=== PATIENT | male | born 1995 | race Caucasian/White ===

== ENCOUNTER 2016-10-03 17:27 | Emergency (ER) | payer BC ==
--- NOTE | 2016-10-03 19:18 | ERPHSYRPT ---
- History of Present Illness Time Seen by Provider: 10/03/16 19:08 Source: patient Exam Limitations: no limitations Patient Subjective Stated Complaint: "I started out going to my pcp for my anxiety. they refered me to the [facility]. i had been going there for about 6 months for my anxiety. today the [facility] told me to find a different provider. i went to the walk in, but they told me the best way to get a referal would be to come to the er.". denies s/i and h/i Triage Nursing Assessment: aox3, breathing easy unlabored,skin pink warm dry, steady gait, no s/s of distress noted. Physician History: FOR THE PAST 8 MONTHS PT HAS HAD ANXIETY. PT C/O INTERMITTENT SHARP ANTERIOR CHEST PAIN FOR THE PAST 7 HOURS LASTING UP TO 10 MINUTES PER EPISODE WITH SHORTNESS OF AIR. PT ALSO C/O OCCASIONAL HEADACHES. PT DENIES ABDOMINAL PAIN, VOMITING, FEVER. Allergies/Adverse Reactions: No Known Drug Allergies Allergy (Unverified 10/03/16 18:31) Home Medications: No Reportable Medications [No Reported Medications] 10/03/16 [History] Hx Tetanus, Diphtheria Vaccination/Date Given: Yes Hx Influenza Vaccination/Date Given: No Hx Pneumococcal Vaccination/Date Given: No Immunizations Up to Date: No - Review of Systems Constitutional: No Fever Respiratory: Dyspnea Cardiac: Chest Pain Abdominal/Gastrointestinal: No Abdominal Pain, No Vomiting Neurological: Headache Psychological: Anxiety All Other Systems: Reviewed and Negative - Past Medical History Neurological History: No Pertinent History ENT History: No Pertinent History Cardiac History: No Pertinent History Respiratory History: No Pertinent History Endocrine Medical History: No Pertinent History Musculoskeletal History: Other GI Medical History: No Pertinent History History: No Pertinent History Psycho-Social History: Anxiety Male Reproductive Disorders: No Pertinent History Other Medical History: herniated disc - Past Surgical History Past Surgical History: No - Social History Smoking Status: Never smoker Exposure to second hand smoke: No Drug Use: none Patient Lives Alone: No - Nursing Vital Signs Nursing Vital Signs: Initial Vital Signs Temperature 97.9 F Temperature Source Oral Pulse Rate 62 Respiratory Rate 14 Blood Pressure [] 112/80 Pain Intensity 6 - Physical Exam General Appearance: alert, anxiety Eye Exam: PERRL/EOMI Ears, Nose, Throat Exam: pharynx normal, moist mucous membranes Neck Exam: normal inspection Respiratory Exam: lungs clear Cardiovascular Exam: normal heart sounds Gastrointestinal/Abdomen Exam: soft, normal bowel sounds Back Exam: normal range of motion Extremity Exam: normal inspection, No pedal edema Neurologic Exam: alert, cooperative Skin Exam: warm, dry SpO2 Interpretation: normal SpO2: 98 Oxygen Delivery: Room Air - Course Nursing assessment & vital signs reviewed: Yes EKG Interpreted by Me: RATE (61), Sinus Rhythm, NORMAL AXIS, NORMAL INTERVALS - Radiology Exams Chest X-ray Interpretation: Interpreted by me, No Pneumonia Ordered Tests: Active Orders 24 hr Category Date Time Status EKG-ER Only STAT Care 10/03/16 19:17 Active CHEST 2 VIEWS (PA AND LAT) Stat Exams 10/03/16 19:17 Taken AMYLASE Stat Lab 10/03/16 19:50 Received CBC W DIFF Stat Lab 10/03/16 19:50 Completed CMP Stat Lab 10/03/16 19:50 Received LIPASE Stat Lab 10/03/16 19:50 Received MAG [MAGNESIUM] Stat Lab 10/03/16 19:50 Received TROPONIN Stat Lab 10/03/16 19:50 Received UA Stat Lab 10/03/16 21:21 Completed Urine Triage Profile Stat Lab 10/03/16 19:17 Ordered Medication Summary Discontinued Medications Generic Name Dose Route Start Last Admin Trade Name Freq PRN Reason Stop Dose Admin Diazepam 10 mg 10/03/16 23:29 Valium 5 Mg PO 10/03/16 23:30 STAT ONE Lab/Rad Data: Laboratory Result Diagrams 10/03/16 19:50 Laboratory Results 10/03/16 10/03/16 Range/Units 21:21 19:50 WBC 9.0 (4.0-10.5) K/mm3 RBC 5.35 (4.1-5.6) M/mm3 Hgb 16.0 (12.5-18.0) gm/dl Hct 46.0 (42-50) % MCV 86.0 (78-100) fl MCH 29.9 (26-32) pg MCHC 34.8 (32-36) g/dl RDW 12.2 (11.5-14.0) % Plt Count 239 (150-450) K/mm3 MPV 11.5 H (6-9.5) fl Gran % 52.9 (36.0-66.0) % Lymphocytes % 34.7 (24.0-44.0) % Monocytes % 11.1 (0.0-12.0) % Eosinophils % 0.9 (0.00-5.0) % Basophils % 0.4 (0.0-0.4) % Basophils # 0.04 (0-0.4) Ur Collection Type CLEAN CATCH Urine Color YELLOW (YELLOW) Urine Appearance CLEAR (CLEAR) Urine pH 7.5 (5-6) Ur Specific [place] 1.015 (1.005-1.025) Urine Protein NEGATIVE (Negative) Urine Glucose (UA) NEGATIVE (NEGATIVE) mg/dL Urine Ketones NEGATIVE (NEGATIVE) Urine Nitrite NEGATIVE (NEGATIVE) Urine Bilirubin NEGATIVE (NEGATIVE) Urine Urobilinogen 0.2 (0-1) mg/dL Urine WBC (Auto) NEGATIVE (NEGATIVE) Urine RBC (Auto) NEGATIVE (0-5) Miguel/ul Specimen Received 10/03/162119 - Departure Time of Disposition: 23:32 Departure Disposition: Home Clinical Impression: CHEST PAIN, ANXIETY Condition: Fair Critical Care Time: No Referrals: ASHER OQUENDO MD [Primary Care Provider] - Instructions: Anxiety -- Adult, Chest Pain Additional Instructions: FOLLOW UP WITH PRIVATE DOCTOR TOMORROW.
[2016-10-03 20:05] LABS: BASOPHIL % 0.4 % (0.0-0.4); Eosinophil % 0.9 % (0.00-5.0); Granulocytes % 52.9 % (36.0-66.0); Lymphocytes % 34.7 % (24.0-44.0); Mean Corpuscular Hemoglobin 29.9 pg (26-32); Mean Platelet Volume 11.5 fl (6-9.5); Monocytes % 11.1 % (0.0-12.0); Platelet Count 239 K/mm3 (150-450); Red Blood Count 5.35 M/mm3 (4.1-5.6); Red Cell Distribution Width 12.2 % (11.5-14.0)
[2016-10-03 21:40] LABS: COMPLETE URINE MICROSCOPIC? NO; Collection Type CLEAN CATCH; Ph 7.5 (5-6)
[2016-10-03] MEDS ORDERED: Valium 5 MG PO ONE (23:29)
[2016-10-03] MEDS ORDERED: Valium 5 MG ONE (23:37)
[2016-10-03 23:46] VITALS: BP 116/70; PULSE 90; O2SAT 96
--- NOTE | 2016-10-04 08:36 | XRAY ---
Indication: Short of breath. Comparison: None PA/lateral chest demonstrates normal heart, lungs, and bony thorax.
== END 2016-10-03 23:47 | disposition home or self-care (01) ==
LOC: ED 17:27
DX: R07.89 Other chest pain (principal); F41.9 Anxiety disorder, unspecified
CPT/HCPCS: 36000; 36415; 71020; 80053; 80307; 81002; 82150; 83690; 83735; 84484; 85025; 93005; 99283; 99284